=== PATIENT | male | born 1950 | race Two or more races ===

== ENCOUNTER 2025-08-24 08:52 | Inpatient (IN) | payer MEDICARE, OTHER ==
[~2025-08-24] VITALS: Ht 167.6 cm; Wt 74.4 kg
[2025-08-24 08:54] VITALS: O2SAT 94
[2025-08-24] MEDS: PIPERACILLIN/TAZO 3.375G/50ML 50 ML IV SCH (09:30)
[2025-08-24] MEDS: SODIUM CHLORIDE 0.9% (SEPSIS BOLUS) IV SCH (09:30)
[2025-08-24] MEDS: ACETAMINOPHEN 1000MG/100ML 100 ML IV SCH (09:33)
[2025-08-24 10:03] LABS: HEMATOCRIT. 43.9 % (42.0-52.0); HEMOGLOBIN. 14.8 g/dL (14.0-18.0); MEAN PLATELET VOLUME 10.3 fl (7.4-10.4); PLATELET 88 x1000/uL (130-400); RED BLOOD CELL COUNT 4.83 mill/uL (4.7-6.1); RED CELL DISTRIBUTION WIDTH 14.3 % (11.6-14.6)
[2025-08-24] MEDS: VANCOMYCIN 1G PREMIX 200 ML IV SCH (10:14)
[2025-08-24 10:18] LABS: INR 1.1
[2025-08-24 10:24] LABS: CREATININE 2.0 mg/dL (0.6-1.3); UREA NITROGEN BLOOD 35 mg/dL (9-23)
[2025-08-24 10:26] LABS: ASPARTATE AMINOTRANSFERASE 53 IU/L (<34); BILIRUBIN DIRECT 0.7 mg/dL (<=3.0); BILIRUBIN TOTAL 1.4 mg/dL (0.1-1.0); PROTEIN TOTAL 6.5 g/dL (6.0-8.3)
[2025-08-24 10:40] LABS: TROPONIN I HIGH SENSITIVITY 82 ng/L (3.0-53)
[2025-08-24] MEDS: KCL 20MEQ/100ML PREMIX 100 ML IV SCH ×2 (10:51→16:34)
[2025-08-24] MEDS ORDERED: ONDANSETRON HCL 4MG/2ML INJ IV PRN (11:45)
[2025-08-24] MEDS ORDERED: ACETAMINOPHEN 650MG SUPP PR PRN (11:45)
[2025-08-24] MEDS ORDERED: MAGNESIUM/ALUMINUM HYDROXIDE/SIMETHICONE 30ML UDC PO PRN (11:45)
[2025-08-24] MEDS ORDERED: IPRATROPIUM/ALBUTEROL 0.5-3(2.5)MG/3ML NEB HHN PRN (11:45)
[2025-08-24] MEDS: SODIUM CHLORIDE 0.9% 2,430 ML IV SCH (11:52)
[2025-08-24] MEDS ORDERED: NALOXONE HCL 0.4MG/ML VIAL IV PRN (12:00)
[2025-08-24 12:02] LABS: BAND% 38.0 % (1.0-6.0); LYMPHOCYTES % MANUAL 2.0 % (20.0-50.0); MONOCYTES % MANUAL 4.0 % (2.0-8.0); NEUTROPHILS % MANUAL 56.0 % (45.0-75.0); PLATELET ESTIMATE DECREASED
[2025-08-24] MEDS: MAGNESIUM 2 G PREMIX 50 ML IV NR (12:50)
[2025-08-24 16:00] VITALS: BP 95/57; PULSE 79; RESP 18; TEMP 36.2; O2SAT 94
[2025-08-24 17:03] VITALS: BP 95/57; PULSE 79; RESP 18; TEMP 36.3068
[2025-08-24] MEDS ORDERED: LEVE750T83 MT (18:18)
[2025-08-24] MEDS ORDERED: ATOR40TA70 MT (18:18)
[2025-08-24] MEDS ORDERED: OXYB-52 PO (18:18)
[2025-08-24] MEDS ORDERED: QUET25TA36 PO (18:18)
[2025-08-24] MEDS ORDERED: TAMS-54 MT (18:18)
[2025-08-24] MEDS ORDERED: SERT-422 MT (18:18)
[2025-08-24] MEDS ORDERED: PANT40TA51 MT (18:18)
[2025-08-24] MEDS ORDERED: AMLO5TAB88 MT (18:18)
[2025-08-24 20:00] VITALS: BP 110/63; PULSE 87; RESP 20; TEMP 36.8; O2SAT 93
[2025-08-24] MEDS ORDERED: MORPHINE SULFATE 2 MG/ML INJ (NOT FOR IM USE) IV SCH (20:30)
[2025-08-24] MEDS: MORPHINE SULFATE 4 MG/ML INJ (FOR IV/IM USE) IV SCH (21:35)
[2025-08-24] MEDS: TAMSULOSIN HCL 0.4MG SR CAPSULE PO SCH (22:35)
[2025-08-25] VITALS: BP 122/77; PULSE 86; RESP 20; TEMP 36.4; O2SAT 95
[2025-08-25 00:47] LABS: *AMPHETAMINES SCREEN URINE NEGATIVE (NEGATIVE); *BARBITURATES SCREEN URINE NEGATIVE (NEGATIVE); *BENZODIAZEPINES SCREEN URINE NEGATIVE (NEGATIVE); *COCAINE SCREEN URINE NEGATIVE (NEGATIVE); CANNABINOID URINE SCREEN NEGATIVE (NEGATIVE); ECSTASY MDMA SCREEN URINE NEGATIVE (NEGATIVE); METHADONE URINE SCREEN NEGATIVE (NEGATIVE); OPIATES URINE SCREEN NEGATIVE (NEGATIVE); PHENCYCLIDINE URINE SCREEN NEGATIVE (NEGATIVE)
[2025-08-25 04:00] VITALS: BP 121/68; PULSE 80; RESP 20; TEMP 36.9; O2SAT 97
[2025-08-25] MEDS: PIPERACILLIN/TAZO 3.375G/50ML 50 ML IV SCH (04:16)
[2025-08-25] MEDS: VANCOMYCIN 750MG/150ML (BAXTER) IV SCH (06:38)
[2025-08-25] MEDS: MULTIVITAMINS,THER W-MINERALS TABLET PO SCH (10:21)
[2025-08-25 12:00] VITALS: BP 133/75; PULSE 74; RESP 18; TEMP 36.7; O2SAT 95
[2025-08-25 16:00] VITALS: BP 126/80; PULSE 81; RESP 18; TEMP 36.6; O2SAT 100
[2025-08-25 17:12] LABS: GLUCOSE URINE NEGATIVE (NEGATIVE); KETONES URINE NEGATIVE (NEGATIVE); LEUKOCYTE ESTERASE URINE 1+ (NEGATIVE); NITRITE URINE NEGATIVE (NEGATIVE); OCCULT BLOOD URINE 2+ (NEGATIVE); PH URINE 5.5 (4.5-8.0); PROTEIN URINE 2+ (NEGATIVE); SPECIFIC GRAVITY URINE 1.024 (1.005-1.030); UROBILINOGEN URINE 1.0 E.U./dL (0.2-1.0)
[2025-08-25 17:29] LABS: CLARITY URINE HAZY (CLEAR); COLOR URINE YELLOW (YELLOW)
[2025-08-25 17:30] LABS: BACTERIA URINE TRACE; RBC URINE 0-2 /hpf (0-2); SQUAMOUS EPITHELIAL CELL URINE RARE /lpf (RARE/1+)
[2025-08-25 17:31] LABS: COARSE GRANULAR CASTS URINE 0-5 /lpf; MUCUS URINE TRACE /lpf (NONE/TRACE)
[2025-08-25] MEDS: CEFTRIAXONE 2GM/50ML 50 ML IV SCH (18:40)
[2025-08-26] VITALS: BP 132/72; PULSE 82; RESP 16; TEMP 37.1; O2SAT 94
[2025-08-26 04:00] VITALS: BP 151/81; PULSE 81; RESP 16; TEMP 36.6; O2SAT 93
[2025-08-26 06:25] LABS: HEMATOCRIT. 37.2 % (42.0-52.0); HEMOGLOBIN. 12.5 g/dL (14.0-18.0); MEAN PLATELET VOLUME 10.9 fl (7.4-10.4); PLATELET 85 x1000/uL (130-400); RED BLOOD CELL COUNT 4.16 mill/uL (4.7-6.1); RED CELL DISTRIBUTION WIDTH 14.5 % (11.6-14.6)
[2025-08-26 06:28] LABS: CREATININE 1.8 mg/dL (0.6-1.3)
[2025-08-26 06:29] LABS: UREA NITROGEN BLOOD 45 mg/dL (9-23)
[2025-08-26 07:56] LABS: C REACTIVE PROTEIN HIGH SENS > 200.00 mg/l (<1.00)
[2025-08-26 08:00] VITALS: BP 134/75; PULSE 83; RESP 22; TEMP 36.8; O2SAT 91
[2025-08-26] MEDS ORDERED: POTASSIUM CHLORIDE 40 MEQ in DEXT 5% WATER 230 ML IV ONE (08:45)
[2025-08-26 09:14] LABS: ERYTHROCYTE SEDIMENTATION RATE 84 mm/hr (0-20)
[2025-08-26] MEDS: KCL 20MEQ/100ML X 2 FOR TOTAL KCL 40MEQ/200ML IV SCH (09:17)
[2025-08-26] MEDS ORDERED: DEXT 5%/0.9% NACL KCL 30MEQ/L 1,000 ML IV SCH (11:30)
[2025-08-26 11:53] LABS: PHOSPHORUS 2.1 mg/dL (2.5-4.9)
[2025-08-26 12:00] VITALS: BP 146/89; PULSE 89; RESP 18; TEMP 36.9; O2SAT 100
[2025-08-26 12:50] LABS: BAND% 13.0 % (1.0-6.0); LYMPHOCYTES % MANUAL 6.0 % (20.0-50.0); MONOCYTES % MANUAL 5.0 % (2.0-8.0); NEUTROPHILS % MANUAL 76.0 % (45.0-75.0); PLATELET ESTIMATE DECREASED
[2025-08-26] MEDS: POTASSIUM CHLORIDE 30 MEQ in DEXT 5%/0.9% NACL 1,000 ML IV SCH (13:03)
[2025-08-26] MEDS: SODIUM PHOSPHATE 10 MMOL in DEXT 5% WATER 246.6667 ML IV SCH (17:13)
[2025-08-26] MEDS: HYDROCODONE/ACETAMINOPHEN 10/325MG TABLET PO PRN (17:19)
[2025-08-26] MEDS ORDERED: CLINDAMYCIN 900 MG in DEXTROSE 5% WATER 50 ML IV SCH (17:45)
[2025-08-26 20:21] VITALS: BP 140/79; PULSE 79; RESP 20; TEMP 37.1; O2SAT 96
[2025-08-26] MEDS: ATORVASTATIN CALCIUM 40MG TABLET PO SCH (22:21)
[2025-08-26] MEDS: CLINDAMYCIN 900MG PREMIX 50 ML IV SCH (22:42)
[2025-08-27] VITALS: BP 138/71; PULSE 80; RESP 18; TEMP 36.9; O2SAT 97
[2025-08-27] MEDS ORDERED: VANCOMYCIN 1GM PMX (XELLIA) 200 ML IV SCH
[2025-08-27 01:54] LABS: TROPONIN I HIGH SENSITIVITY 15 ng/L (3.0-53)
[2025-08-27 04:00] VITALS: BP 110/63; PULSE 67; RESP 18; TEMP 37.2; O2SAT 97
[2025-08-27 06:46] LABS: HEMATOCRIT. 34.8 % (42.0-52.0); HEMOGLOBIN. 11.9 g/dL (14.0-18.0); MEAN PLATELET VOLUME 10.8 fl (7.4-10.4); PLATELET 98 x1000/uL (130-400); RED BLOOD CELL COUNT 3.90 mill/uL (4.7-6.1); RED CELL DISTRIBUTION WIDTH 14.3 % (11.6-14.6)
[2025-08-27 06:47] LABS: CREATININE 1.5 mg/dL (0.6-1.3)
[2025-08-27 06:48] LABS: UREA NITROGEN BLOOD 37 mg/dL (9-23)
[2025-08-27 06:50] LABS: PHOSPHORUS 2.5 mg/dL (2.5-4.9)
[2025-08-27] MEDS: ASPIRIN 81MG TABLET PO SCH (07:44)
[2025-08-27 08:47] VITALS: BP 137/62; PULSE 60; RESP 19; TEMP 36.6; O2SAT 95
[2025-08-27] MEDS: POTASSIUM CHLORIDE 20MEQ/PACKET PO NR (10:15)
[2025-08-27 13:00] VITALS: BP 120/58; PULSE 64; RESP 20; TEMP 36.4; O2SAT 94
[2025-08-27 14:57] LABS: LYMPHOCYTES % MANUAL 9.0 % (20.0-50.0); MONOCYTES % MANUAL 8.0 % (2.0-8.0); NEUTROPHILS % MANUAL 83.0 % (45.0-75.0); PLATELET ESTIMATE SLIGHTLY DECREASED
[2025-08-27 16:44] VITALS: BP 149/73; PULSE 74; RESP 20; TEMP 36.7; O2SAT 92
[2025-08-27 18:11] LABS: BODY FLUID MONOCYTES 8 %
[2025-08-27 18:14] LABS: BODY FLUID WBC 14640 /cu mm (0-200)
[2025-08-27 18:15] LABS: BODY FLUID RBC 775 /cu mm (0-2000)
[2025-08-27 20:00] VITALS: BP 146/70; PULSE 68; RESP 20; TEMP 37.7; O2SAT 97
[2025-08-28] VITALS: BP 138/69; PULSE 67; RESP 20; TEMP 37.3; O2SAT 98
[2025-08-28 04:58] VITALS: BP 158/88; PULSE 65; RESP 20; TEMP 37.2; O2SAT 98
[2025-08-28 06:33] LABS: BASOPHILS % 0.1 % (0.0-2.0); CREATININE 1.4 mg/dL (0.6-1.3); EOSINOPHILS % 0.8 % (0.0-5.0); HEMATOCRIT. 35.3 % (42.0-52.0); HEMOGLOBIN. 12.1 g/dL (14.0-18.0); LYMPHOCYTES % 7.3 % (20.0-50.0); MEAN PLATELET VOLUME 10.8 fl (7.4-10.4); MONOCYTES % 5.4 % (2.0-8.0); NEUTROPHILS % 86.4 % (40.0-76.0); PLATELET 130 x1000/uL (130-400); RED BLOOD CELL COUNT 3.98 mill/uL (4.7-6.1); RED CELL DISTRIBUTION WIDTH 14.3 % (11.6-14.6); UREA NITROGEN BLOOD 32 mg/dL (9-23)
[2025-08-28 06:35] LABS: PHOSPHORUS 2.4 mg/dL (2.5-4.9)
[2025-08-28] MEDS ORDERED: POTASSIUM CHLORIDE 20MEQ/PACKET PO NR (06:45)
[2025-08-28] MEDS ORDERED: POTASSIUM CHLORIDE 20MEQ/PACKET PO ONE (09:45)
[2025-08-28] MEDS: MAGNESIUM 2 G PREMIX 50 ML IV NR (11:11)
[2025-08-28] MEDS: KCL 20MEQ/100ML PREMIX 100 ML IV SCH (15:35)
[2025-08-28 16:00] VITALS: BP 142/73; PULSE 76; RESP 18; TEMP 36.4; O2SAT 96
[2025-08-28] MEDS: POTASSIUM CHLORIDE 20MEQ/PACKET PO NR (19:40)
[2025-08-28 20:00] VITALS: BP 114/61; PULSE 62; RESP 20; TEMP 37.1; O2SAT 96
[2025-08-28] MEDS: ENOXAPARIN 40MG/0.4ML SYR SUBCUT SCH (22:39)
[2025-08-29] VITALS: BP 127/68; PULSE 58; RESP 20; TEMP 37; O2SAT 97
[2025-08-29 04:00] VITALS: BP 147/76; PULSE 58; RESP 18; TEMP 37.2; O2SAT 96
[2025-08-29 08:00] VITALS: BP 138/78; PULSE 79; RESP 20; TEMP 36.3; O2SAT 97
[2025-08-29] MEDS: POTASSIUM CHLORIDE 20MEQ/PACKET PO NR (10:25)
[2025-08-29] MEDS: FAMOTIDINE 20MG/2ML VIAL IV SCH (10:26)
[2025-08-29 12:00] VITALS: BP 135/85; PULSE 82; RESP 18; TEMP 36.4; O2SAT 98
[2025-08-29] MEDS ORDERED: POTASSIUM CHLORIDE 20MEQ/PACKET PO SCH (14:00)
[2025-08-29] MEDS ORDERED: MAGNESIUM 2 G PREMIX 50 ML IV ONE (14:00)
[2025-08-29 16:00] VITALS: BP 138/78; PULSE 76; RESP 18; TEMP 36.9; O2SAT 98
[2025-08-29] MEDS: ACETAMINOPHEN 650MG SUPP PR PRN (18:46)
[2025-08-29] MEDS: POTASSIUM CHLORIDE 20MEQ/PACKET PO SCH (19:14)
[2025-08-29 20:00] VITALS: BP 171/83; PULSE 61; RESP 20; TEMP 36.8; O2SAT 97
[2025-08-29] MEDS: CLONIDINE 0.1MG TABLET PO PRN (21:46)
[2025-08-30] VITALS (7 sets, daily range): BP systolic 137–183; BP diastolic 63–93; PULSE 54–97; RESP 18–20; TEMP 36.4–37; O2SAT 96–100
[2025-08-30] MEDS ORDERED: HYDROCODONE/ACETAMINOPHEN 5/325MG TABLET PO PRN (00:30)
[2025-08-30] MEDS ORDERED: NALOXONE HCL 0.4MG/ML VIAL IV PRN (00:45)
[2025-08-30 08:09] LABS: HEMATOCRIT. 35.5 % (42.0-52.0); HEMOGLOBIN. 12.2 g/dL (14.0-18.0); MEAN PLATELET VOLUME 8.7 fl (7.4-10.4); PLATELET 270 x1000/uL (130-400); RED BLOOD CELL COUNT 3.99 mill/uL (4.7-6.1); RED CELL DISTRIBUTION WIDTH 14.7 % (11.6-14.6)
[2025-08-30 08:24] LABS: CREATININE 1.3 mg/dL (0.6-1.3); UREA NITROGEN BLOOD 27 mg/dL (9-23)
[2025-08-30 08:26] LABS: PHOSPHORUS 2.3 mg/dL (2.5-4.9)
[2025-08-30] MEDS: LACTATED RINGERS 1,000 ML IV SCH (10:40)
[2025-08-30] MEDS: MAGNESIUM 2 G PREMIX 50 ML IV NR (10:47)
[2025-08-30] MEDS: POTASSIUM CHLORIDE 20MEQ/PACKET PO NR (10:56)
[2025-08-30] MEDS: POTASSIUM PHOSPHATE 20 MMOL in DEXT 5% WATER 243.3333 ML IV SCH (14:57)
[2025-08-30 18:00] LABS: EOSINOPHILS % MANUAL 2.0 % (0.0-5.0); LYMPHOCYTES % MANUAL 10.0 % (20.0-50.0); MONOCYTES % MANUAL 4.0 % (2.0-8.0); NEUTROPHILS % MANUAL 84.0 % (45.0-75.0); PLATELET ESTIMATE NORMAL
[2025-08-31] VITALS: BP 150/90; PULSE 72; RESP 18; TEMP 36.4; O2SAT 97
[2025-08-31 06:53] LABS: BASOPHILS % 0.2 % (0.0-2.0); EOSINOPHILS % 1.8 % (0.0-5.0); HEMATOCRIT. 37.6 % (42.0-52.0); HEMOGLOBIN. 12.9 g/dL (14.0-18.0); LYMPHOCYTES % 10.0 % (20.0-50.0); MEAN PLATELET VOLUME 8.8 fl (7.4-10.4); MONOCYTES % 5.3 % (2.0-8.0); NEUTROPHILS % 82.7 % (40.0-76.0); PLATELET 298 x1000/uL (130-400); RED BLOOD CELL COUNT 4.20 mill/uL (4.7-6.1); RED CELL DISTRIBUTION WIDTH 14.6 % (11.6-14.6)
[2025-08-31 07:08] LABS: CREATININE 1.3 mg/dL (0.6-1.3); UREA NITROGEN BLOOD 26 mg/dL (9-23)
[2025-08-31 07:10] LABS: PHOSPHORUS 4.0 mg/dL (2.5-4.9)
[2025-08-31 08:00] VITALS: BP 166/92; PULSE 77; RESP 18; TEMP 36.4; O2SAT 97
[2025-08-31] MEDS: POTASSIUM CHLORIDE 20MEQ/PACKET PO NR (11:15)
[2025-08-31 12:14] VITALS: BP 173/89; PULSE 61; RESP 18; TEMP 36.4; O2SAT 93
[2025-08-31 19:51] VITALS: BP 153/81; PULSE 62; RESP 20; TEMP 36.3; O2SAT 95
[2025-09-01 00:16] VITALS: BP 178/85; PULSE 57; RESP 20; TEMP 36.1; O2SAT 95
[2025-09-01] MEDS: AMLODIPINE 10MG TABLET PO SCH (00:53)
[2025-09-01 04:07] VITALS: BP 160/80; PULSE 70; RESP 20; TEMP 36.4; O2SAT 95
[2025-09-01] MEDS: LOSARTAN 25 MG TABLET PO SCH ×2 (09:00→21:00)
[2025-09-01 20:00] VITALS: BP 134/85; PULSE 82; RESP 18; TEMP 36.7; O2SAT 95
[2025-09-02] VITALS: BP 162/88; PULSE 84; RESP 19; TEMP 36.4; O2SAT 96
[2025-09-02 04:00] VITALS: BP 160/90; PULSE 100; RESP 18; TEMP 36.2; O2SAT 96
[2025-09-02 11:47] LABS: BASOPHILS % 0.4 % (0.0-2.0); EOSINOPHILS % 1.6 % (0.0-5.0); HEMATOCRIT. 33.2 % (42.0-52.0); HEMOGLOBIN. 11.4 g/dL (14.0-18.0); LYMPHOCYTES % 8.7 % (20.0-50.0); MEAN PLATELET VOLUME 8.2 fl (7.4-10.4); MONOCYTES % 5.4 % (2.0-8.0); NEUTROPHILS % 83.9 % (40.0-76.0); PLATELET 287 x1000/uL (130-400); RED BLOOD CELL COUNT 3.69 mill/uL (4.7-6.1); RED CELL DISTRIBUTION WIDTH 14.3 % (11.6-14.6)
[2025-09-02 11:56] LABS: CREATININE 1.3 mg/dL (0.6-1.3)
[2025-09-02 11:57] LABS: UREA NITROGEN BLOOD 20 mg/dL (9-23)
[2025-09-02 11:59] LABS: PHOSPHORUS 3.5 mg/dL (2.5-4.9)
[2025-09-02 12:00] VITALS: BP 139/78; PULSE 78; RESP 20; TEMP 36.4; O2SAT 99
[2025-09-02 16:00] VITALS: BP 130/81; PULSE 73; RESP 20; TEMP 36.4; O2SAT 100
[2025-09-02] MEDS: MAGNESIUM 2 G PREMIX 50 ML IV SCH (17:58)
[2025-09-02] MEDS: POTASSIUM CHLORIDE 20MEQ TABLET SR PO SCH (17:58)
[2025-09-02 20:00] VITALS: BP 127/66; PULSE 70; RESP 20; TEMP 36.9; O2SAT 100
[2025-09-03] VITALS: BP 135/70; PULSE 67; RESP 18; TEMP 36.7; O2SAT 97
[2025-09-03 04:00] VITALS: BP 141/91; PULSE 86; RESP 20; TEMP 36.4; O2SAT 98
[2025-09-03 08:00] VITALS: BP 162/78; PULSE 78; RESP 20; TEMP 36.4; O2SAT 94
[2025-09-03] MEDS: HYDRALAZINE 20MG/ML VIAL IV PRN (09:10)
[2025-09-03 12:15] LABS: BASOPHILS % 0.7 % (0.0-2.0); EOSINOPHILS % 2.4 % (0.0-5.0); HEMATOCRIT. 37.0 % (42.0-52.0); HEMOGLOBIN. 12.7 g/dL (14.0-18.0); LYMPHOCYTES % 10.0 % (20.0-50.0); MEAN PLATELET VOLUME 8.4 fl (7.4-10.4); MONOCYTES % 4.2 % (2.0-8.0); NEUTROPHILS % 82.7 % (40.0-76.0); PLATELET 288 x1000/uL (130-400); RED BLOOD CELL COUNT 4.11 mill/uL (4.7-6.1); RED CELL DISTRIBUTION WIDTH 14.1 % (11.6-14.6)
[2025-09-03 12:25] LABS: CREATININE 1.2 mg/dL (0.6-1.3)
[2025-09-03 12:26] LABS: UREA NITROGEN BLOOD 14 mg/dL (9-23)
[2025-09-03 16:00] VITALS: BP 140/80; PULSE 104; RESP 16; TEMP 36.6; O2SAT 100
[2025-09-03 20:00] VITALS: BP 147/72; PULSE 91; RESP 20; TEMP 36.4; O2SAT 96
[2025-09-04] VITALS: BP 137/70; PULSE 82; RESP 20; TEMP 36.4; O2SAT 95
[2025-09-04 07:55] VITALS: BP 132/72; PULSE 78; RESP 19; TEMP 36.8; O2SAT 93
[2025-09-04] MEDS: POTASSIUM CHLORIDE 20MEQ/PACKET PO SCH (15:10)
[2025-09-04 15:56] VITALS: BP 127/92; PULSE 91; RESP 19; TEMP 36.6; O2SAT 93
[2025-09-05] VITALS: BP 160/84; PULSE 94; RESP 17; TEMP 36.7; O2SAT 97
[2025-09-05 08:16] VITALS: BP 151/67; PULSE 89
[2025-09-05 15:52] VITALS: TEMP 36.4
[2025-09-05 20:00] VITALS: RESP 20; TEMP 36.8
[2025-09-05] MEDS: LOSARTAN 50 MG TABLET PO SCH (21:00)
[2025-09-06] VITALS: RESP 18; TEMP 37
[2025-09-06 04:00] VITALS: RESP 18
[2025-09-07 12:00] VITALS: BP 130/74; PULSE 89; RESP 20; TEMP 36.3; O2SAT 99
[2025-09-07 16:00] VITALS: BP 134/67; PULSE 79; RESP 18; TEMP 36.4; O2SAT 98
[2025-09-08 08:00] VITALS: BP 154/86; PULSE 79; RESP 18; TEMP 35.7; O2SAT 98
[2025-09-08 12:00] VITALS: BP 138/79; PULSE 75; RESP 18; TEMP 36.2; O2SAT 98
[2025-09-08 16:00] VITALS: BP 142/83; PULSE 89; RESP 18; TEMP 36.7; O2SAT 99
[2025-09-08 20:00] VITALS: BP 125/69; PULSE 80; RESP 20; TEMP 36.8; O2SAT 96
[2025-09-09] VITALS: BP_SYST 125; BP_SYST 129; BP_DIAS 69; BP_DIAS 77; PULSE 78; PULSE 80; RESP 18; RESP 20; TEMP 36.6; TEMP 36.8; O2SAT 96; O2SAT 99
[2025-09-09 04:00] VITALS: BP 128/82; PULSE 78; RESP 18; TEMP 37; O2SAT 99
[2025-09-09 11:59] VITALS: BP 129/77; PULSE 87; RESP 18; TEMP 36.5
[2025-09-09 16:14] VITALS: BP 135/96; PULSE 72; TEMP 36.2
[2025-09-09 20:00] VITALS: BP 135/98; PULSE 77; RESP 18; TEMP 36.5; O2SAT 98
[2025-09-10] VITALS: BP 128/80; PULSE 85; RESP 18; TEMP 36.4; O2SAT 99
[2025-09-10 07:45] VITALS: BP 170/89; PULSE 67; RESP 20; TEMP 36.4; O2SAT 93
[2025-09-10 15:53] VITALS: TEMP 36.9
[2025-09-10 20:00] VITALS: BP 158/80; PULSE 86; RESP 19; TEMP 36.1; O2SAT 98
[2025-09-11] VITALS: BP 171/88; PULSE 96; RESP 19; TEMP 36.4; O2SAT 95
[2025-09-11 04:00] VITALS: PULSE 141; RESP 19; TEMP 36.6; O2SAT 97
[2025-09-11 12:04] VITALS: BP 141/80; PULSE 81; RESP 19; TEMP 36.7; O2SAT 92
[2025-09-11 15:31] VITALS: BP 136/78; PULSE 71; RESP 18; TEMP 36.5; O2SAT 95
[2025-09-11 20:00] VITALS: BP 153/87; PULSE 84; RESP 18; TEMP 36.2; O2SAT 96
[2025-09-12 16:45] VITALS: BP 151/81; PULSE 87; RESP 18; TEMP 36.8; O2SAT 97
[2025-09-14] MEDS ORDERED: ATROPINE SULFATE 1MG/10ML SYR ONE (07:19)
[2025-09-14] MEDS ORDERED: LIDOCAINE HCL 1% 10 MG/ML 10ML VIAL ONE (07:23)
[2025-09-14] MEDS: LORAZEPAM 2MG/ML UD SYRINGE IM NR (08:32)
[2025-09-14 11:35] VITALS: BP 153/89; PULSE 107; RESP 19; TEMP 36.7; O2SAT 93
[2025-09-14 16:20] VITALS: BP 155/85; PULSE 95; RESP 18; TEMP 36.3
[2025-09-15] MEDS: LORAZEPAM 2MG/ML UD SYRINGE IV NR (07:30)
[2025-09-15 07:47] VITALS: BP 138/110; PULSE 136
[2025-09-15 11:30] VITALS: TEMP 36.4
[2025-09-15 16:05] VITALS: BP 138/77; PULSE 83; RESP 20; TEMP 36.5; O2SAT 95
[2025-09-15 20:00] VITALS: BP 144/79; PULSE 83; RESP 20; TEMP 36.3; O2SAT 96
[2025-09-16 04:42] VITALS: BP 137/90; PULSE 87; RESP 19; TEMP 36.7; O2SAT 97
[2025-09-16] MEDS: ENOXAPARIN 40MG/0.4ML SYR SUBCUT SCH (09:00)
[2025-09-16] MEDS: LIDOCAINE HCL 1% 10 MG/ML 10ML VIAL ONE ×2 (23:47)
[2025-09-16] MEDS: SODIUM BICARBONATE 4.2% 2.5MEQ/5ML VIAL IV ONE (23:47)
[2025-09-17 20:00] VITALS: BP 133/72; PULSE 88; TEMP 36.4
[2025-09-18 04:00] VITALS: BP 162/90; PULSE 77; RESP 20; TEMP 36.5; O2SAT 96
[2025-09-18] MEDS: CLONIDINE 0.1MG TABLET PO PRN (04:53)
[2025-09-18 11:56] VITALS: BP 140/87; PULSE 87; RESP 20; TEMP 36.3; O2SAT 98
[2025-09-18] MEDS ORDERED: LORAZEPAM 2MG/ML UD SYRINGE IV SCH (16:00)
[2025-09-18 20:42] VITALS: BP 156/80; PULSE 65; RESP 20; TEMP 36.3; O2SAT 94
[2025-09-19] VITALS: BP 147/77; PULSE 67; RESP 20; TEMP 36.4; O2SAT 95
[2025-09-19 04:58] VITALS: BP 140/70; PULSE 66; RESP 20; TEMP 36.4; O2SAT 95
[2025-09-19 12:00] VITALS: BP 145/72; PULSE 67; RESP 18; TEMP 36.4; O2SAT 95
[2025-09-19] MEDS ORDERED: LIDOCAINE HCL 1% 10 MG/ML 10ML VIAL ONE (13:03)
[2025-09-19] MEDS ORDERED: HYDRALAZINE 10 MG in SODIUM CHLORIDE 0.9% 49.5 ML IV PRN (15:15)
[2025-09-19 16:00] VITALS: BP 122/71; RESP 16; TEMP 36.7; O2SAT 96
[2025-09-19 20:00] VITALS: BP 131/69; PULSE 77; RESP 18; TEMP 36.4; O2SAT 94
[2025-09-20 08:00] VITALS: BP 114/61; PULSE 84; RESP 18; TEMP 36.3; O2SAT 95
[2025-09-21 08:00] VITALS: BP 130/79; PULSE 85; RESP 18; TEMP 36.2; O2SAT 99
[2025-09-21 16:00] VITALS: BP 143/85; PULSE 77; RESP 18; TEMP 36.2; O2SAT 99
[2025-09-21 20:00] VITALS: RESP 17; TEMP 36.2
[2025-09-22] VITALS: RESP 18; TEMP 36.4
[2025-09-22 04:00] VITALS: RESP 17
[2025-09-22 08:00] VITALS: BP 122/74; PULSE 84; RESP 18; TEMP 36.6; O2SAT 95
[2025-09-22] MEDS ORDERED: LIDOCAINE HCL 1% 10 MG/ML 10ML VIAL ONE (09:09)
[2025-09-22] MEDS: LORAZEPAM 2MG/ML UD SYRINGE IV SCH (09:22)
[2025-09-22 12:00] VITALS: BP 120/80; PULSE 77; RESP 16; TEMP 36.5; O2SAT 100
[2025-09-22 16:00] VITALS: BP 143/73; PULSE 60; RESP 16; TEMP 36.4; O2SAT 100
[2025-09-22 20:00] VITALS: BP 126/80; PULSE 83; RESP 18; TEMP 36.7; O2SAT 97
[2025-09-23 08:00] VITALS: BP 151/86; PULSE 95; RESP 20; TEMP 36.4; O2SAT 95
[2025-09-23 12:00] VITALS: BP 146/77; PULSE 95; RESP 20; TEMP 36.5; O2SAT 95
[2025-09-23 16:00] VITALS: BP 119/68; PULSE 93; RESP 19; TEMP 36.6; O2SAT 96
[2025-09-23 20:00] VITALS: BP 116/86; PULSE 91; RESP 19; TEMP 36.6; O2SAT 95
[2025-09-24 04:00] VITALS: BP 118/86; PULSE 84; RESP 18; TEMP 36.5; O2SAT 96
[2025-09-24 08:00] VITALS: BP 132/72; PULSE 90; RESP 19; TEMP 35.9; O2SAT 100
[2025-09-24 20:00] VITALS: BP 125/72; PULSE 88; RESP 20; TEMP 36.3
[2025-09-25] VITALS: BP 116/69; PULSE 91; RESP 19; TEMP 36.4; O2SAT 98
[2025-09-25] MEDS: ACETAMINOPHEN 325MG TABLET PO PRN (01:27)
[2025-09-25] MEDS ORDERED: NALOXONE HCL 0.4MG/ML VIAL IV PRN (03:00)
[2025-09-25 08:00] VITALS: BP 139/70; PULSE 97; RESP 18; O2SAT 96
[2025-09-25 16:00] VITALS: BP 107/66; PULSE 76; RESP 18; O2SAT 95
[2025-09-26 08:00] VITALS: BP 143/77; PULSE 70; RESP 18; O2SAT 95
[2025-09-26 16:00] VITALS: BP 125/61; PULSE 80; RESP 18; TEMP 36.6; O2SAT 95
[2025-09-26 20:00] VITALS: BP 141/84; PULSE 79; RESP 19; TEMP 36.3; O2SAT 95
[2025-09-27] VITALS: RESP 18
[2025-09-27 08:00] VITALS: BP 132/72; PULSE 88; RESP 18; TEMP 35.6; O2SAT 100
[2025-09-27] MEDS: TRAMADOL 50MG TABLET PO PRN (11:55)
[2025-09-27 12:00] VITALS: BP 126/71; PULSE 83; RESP 18; TEMP 36.2; O2SAT 98
[2025-09-27 16:00] VITALS: BP 110/68; PULSE 76; RESP 17; TEMP 36.3; O2SAT 100
[2025-09-27 20:00] VITALS: RESP 18
[2025-09-28] VITALS: RESP 18
[2025-09-28 04:00] VITALS: RESP 16
[2025-09-28 08:00] VITALS: BP 119/63; PULSE 70; RESP 16; TEMP 36.4; O2SAT 96
[2025-09-28 16:00] VITALS: BP 118/70; PULSE 76; RESP 17; TEMP 36.4; O2SAT 95
[2025-09-28 18:42] VITALS: BP 118/70; PULSE 76; RESP 17; TEMP 97.5
== END 2025-09-28 20:08 | DRG 871 ==
LOC: ER 08:52 → 7WST 11:36 → EDBEDREQ 11:46 → EDBEDREQTM 11:46 → ENRESERV 14:43 → 7EST 09-19 13:05
PROVIDERS: ADMIT Student in an Organized Health Care Education/Training Program; ATTEND Student in an Organized Health Care Education/Training Program
PROC: 0S9C3ZZ Drainage of Right Knee Joint, Percutaneous Approach (ICD-10-PCS; 2025-08-27)
PROC: 0SB Lower Joints, Excision (ICD-10-PCS; 2025-08-27)
PROC: 02HV33Z Insertion of Infusion Device into Superior Vena Cava, Percutaneous Approach (ICD-10-PCS; principal; 2025-09-22)
PROC: B548ZZA Ultrasonography of Superior Vena Cava, Guidance (ICD-10-PCS; 2025-09-22)
DX: A40.0 Sepsis due to streptococcus, group A (principal); G92.8 Other toxic encephalopathy; I21.A1 Myocardial infarction type 2; S32.414A Nondisplaced fracture of anterior wall of right acetabulum, initial encounter for closed fracture; E87.20 Acidosis, unspecified; R16.2 Hepatomegaly with splenomegaly, not elsewhere classified; E83.39 Other disorders of phosphorus metabolism; T84.53XA Infection and inflammatory reaction due to internal right knee prosthesis, initial encounter; N17.9 Acute kidney failure, unspecified; S32.591A Other specified fracture of right pubis, initial encounter for closed fracture; N30.90 Cystitis, unspecified without hematuria; I69.351 Hemiplegia and hemiparesis following cerebral infarction affecting right dominant side; D64.9 Anemia, unspecified; I13.10 Hypertensive heart and chronic kidney disease without heart failure, with stage 1 through stage 4 chronic kidney disease, or unspecified chronic kidney disease; E11.22 Type 2 diabetes mellitus with diabetic chronic kidney disease; N18.9 Chronic kidney disease, unspecified; J44.9 Chronic obstructive pulmonary disease, unspecified; F20.9 Schizophrenia, unspecified; F32.A Depression, unspecified; M54.6 Pain in thoracic spine; E87.6 Hypokalemia; E83.42 Hypomagnesemia; E78.5 Hyperlipidemia, unspecified; M70.51 Other bursitis of knee, right knee; I25.10 Atherosclerotic heart disease of native coronary artery without angina pectoris; Y83.1 Surgical operation with implant of artificial internal device as the cause of abnormal reaction of the patient, or of later complication, without mention of misadventure at the time of the procedure; N40.0 Benign prostatic hyperplasia without lower urinary tract symptoms; W18.39XA Other fall on same level, initial encounter; Y93.89 Activity, other specified; Y92.89 Other specified places as the place of occurrence of the external cause; Y99.8 Other external cause status; I25.2 Old myocardial infarction; Z91.199 Patient's noncompliance with other medical treatment and regimen due to unspecified reason
CPT/HCPCS: 20611; 36415; 36573; 71045; 71250; 73030; 73120; 73562; 74176; 76942; 80048; 80076; 80202; 80305; 81003; 82550; 82962; 83036; 83605; 83735; 83986; 84100; 84145; 84315; 84478; 84484; 85025; 85651; 86141; 87077; 87186; 88304; 89060; 93005; 93306; 96361; 96365; 96368; 99291; A4606; C1725; C1769; J0360; J0461; J0696; J1308; J1650; J2003; J2060; J2270; J2543; J3373; J3475; J3480; J3490; J7042; J7060; J0131